=== PATIENT | female | born 1965 | race Caucasian/White ===

== ENCOUNTER 2018-01-03 07:20 | Outpatient (CLI) | payer OTHER | END 2018-01-03 07:30 | disposition home or self-care (01) | LOC: LAB 07:20 | DX: E10.10 Type 1 diabetes mellitus with ketoacidosis without coma (principal); E78.2 Mixed hyperlipidemia; I11.0 Hypertensive heart disease with heart failure; N39.0 Urinary tract infection, site not specified; D53.9 Nutritional anemia, unspecified; E04.0 Nontoxic diffuse goiter; D55.9 Anemia due to enzyme disorder, unspecified ==